=== PATIENT | male | born 1950 | race Caucasian/White ===

== ENCOUNTER 2018-12-15 13:54 | Emergency (ER) | payer MEDICARE ==
[~2018-12-15] VITALS: Ht 177.8 cm; Wt 69.1 kg
[2018-12-15 14:06] VITALS: BP 129/72
[2018-12-15] MEDS ORDERED: TETanus/Pertussis (Acell)/Diphther VAC/PF (Tdap-Adult) 0.5ml syringe IMVAC ONE (15:15)
== END 2018-12-15 16:34 | disposition home or self-care (01) ==
LOC: ER 13:55
DX: S51.812A Laceration without foreign body of left forearm, initial encounter (principal); W22.8XXA Striking against or struck by other objects, initial encounter; Y93.89 Activity, other specified; Y92.89 Other specified places as the place of occurrence of the external cause; Y99.9 Unspecified external cause status
CPT/HCPCS: 73090; 99283

== ENCOUNTER 2019-10-03 14:32 | Emergency (ER) | payer MEDICARE ==
[~2019-10-03] VITALS: Ht 177.8 cm; Wt 70.5 kg
[2019-10-03 14:40] VITALS: BP 116/62
== END 2019-10-03 15:50 | disposition home or self-care (01) ==
LOC: ER 14:33
DX: M79.672 Pain in left foot (principal); R19.7 Diarrhea, unspecified; K30 Functional dyspepsia
CPT/HCPCS: 99281

== ENCOUNTER → 2022-12-01 | Day surgery (SDC) | payer MEDICARE, OTHER ==
[~2022-12-01] VITALS: Ht 177.8 cm; Wt 59.1 kg
[~2022-12-01] MED LIST: ATR0.5NEB IH; BISA10SU60 RC; CEFA1PIG IV; GUAI-647 PO; LACT10SO3 PO; LIDOcaine Viscous 15ml cup ONE; MIDAZolam 1 MG/ML 5ML VIAL ONE; RING10003 IV; fentaNYL/PF 50MCG/1 ML 2ML syringe ONE
[2022-12-01 12:03] VITALS: BP 149/85; PULSE 86; RESP 23
[2022-12-01 14:31] VITALS: BP 121/69; PULSE 79; RESP 17; O2SAT 95
[2022-12-01 14:36] VITALS: BP 121/69; PULSE 79; RESP 17; O2SAT 95
[2022-12-01 14:41] VITALS: BP 107/67; PULSE 79; RESP 16; O2SAT 95
[2022-12-01 14:51] VITALS: BP 107/60; PULSE 74; RESP 16; O2SAT 94
[2022-12-01 15:01] VITALS: BP 109/61; PULSE 74; RESP 16; O2SAT 94
== END | disposition home or self-care (01) ==
LOC: GI LAB 11:41
PROVIDERS: ATTEND Surgery
DX: T85.528A Displacement of other gastrointestinal prosthetic devices, implants and grafts, initial encounter (principal); Z79.2 Long term (current) use of antibiotics; Z79.899 Other long term (current) drug therapy; Y73.2 Prosthetic and other implants, materials and accessory gastroenterology and urology devices associated with adverse incidents; Y92.89 Other specified places as the place of occurrence of the external cause
CPT/HCPCS: 43246; B4087; J2250; J3010; J7030; Z7512; 99152; A4615

== ENCOUNTER 2022-12-11 14:32 | Emergency (ER) | payer MEDICARE, OTHER ==
[~2022-12-11] VITALS: Ht 177.8 cm; Wt 58.6 kg
[~2022-12-11 14:32] MED LIST changes: -LIDOcaine Viscous 15ml cup ONE; -MIDAZolam 1 MG/ML 5ML VIAL ONE; -fentaNYL/PF 50MCG/1 ML 2ML syringe ONE
[2022-12-11 14:47] VITALS: BP 104/67; PULSE 91; RESP 18; TEMP 97.2; O2SAT 97
[2022-12-11] MEDS ORDERED: diatrozoate meglu/diatrozoate sod (37% iodine) 120ML oral solution PO ONE (15:50)
[2022-12-11] MEDS ORDERED: diatr meglu/diatrizoate 30ml oral sol.-(3 dose) bottle PO ONE (15:55)
== END 2022-12-11 18:08 | disposition home or self-care (01) ==
LOC: ER 14:32
DX: K94.23 Gastrostomy malfunction (principal); Z79.899 Other long term (current) drug therapy
CPT/HCPCS: 43762; 74018; 99284; B4087; Q9963; A6253; A6258; A6449

== ENCOUNTER 2023-02-09 14:19 | Emergency (ER) | payer MEDICARE, MEDICAID | END 2023-02-09 15:17 | disposition left against medical advice (07) | LOC: ER 14:20 | DX: Z45.2 Encounter for adjustment and management of vascular access device (principal); Z53.21 Procedure and treatment not carried out due to patient leaving prior to being seen by health care provider ==